=== PATIENT | male | born 1965 | race Two or more races ===

== ENCOUNTER 2019-05-07 16:28 | Emergency (ER) | payer SELFPAY ==
[~2019-05-07] VITALS: Ht 175.3 cm; Wt 127.0 kg
[2019-05-07] MEDS ORDERED: LIDOCAINE HCL/EPINEPHRINE 1%-EPI 1:100,000 20 ML VIAL INFIL ONE (18:00)
[2019-05-07 18:44] VITALS: BP 202/123
== END 2019-05-07 18:47 | disposition home or self-care (01) ==
LOC: ER 16:28
DX: S01.01XA Laceration without foreign body of scalp, initial encounter (principal); W22.8XXA Striking against or struck by other objects, initial encounter; Y93.89 Activity, other specified; Y92.89 Other specified places as the place of occurrence of the external cause; Y99.8 Other external cause status; Z87.442 Personal history of urinary calculi
CPT/HCPCS: 12002; 99283; J3490

== ENCOUNTER 2019-05-17 13:06 | Emergency (ER) | payer SELFPAY ==
[~2019-05-17] VITALS: Ht 198.1 cm; Wt 115.0 kg
[2019-05-17 15:26] VITALS: BP 158/89
== END 2019-05-17 15:25 | disposition home or self-care (01) ==
LOC: ER 13:06
DX: S01.01XD Laceration without foreign body of scalp, subsequent encounter (principal); W22.8XXD Striking against or struck by other objects, subsequent encounter; Z88.0 Allergy status to penicillin; Z87.19 Personal history of other diseases of the digestive system
CPT/HCPCS: 99281